=== PATIENT | female | born 1970 | race Caucasian/White ===

== ENCOUNTER → 2017-05-12 | Outpatient (CLI) | payer OTHER ==
[~2017-05-12] MED LIST: ASPI-589 PO; ATOR10TA88 PO; ATV/1 PO; ATV1 PO; LEVO75TA5 PO; PRLSR20 PO; SUCR1TAB29 PO
[2017-05-12 12:38] LABS: BASO % 0.2 %; BASO ABS # 0.01 K/uL (0-0.2); COMPLETE YES; EOS % 1.6 %; HEMATOCRIT 44.4 % (37-47); IG% 0.2 %; LYMPH % 22.3 %; LYMPH ABS # 1.24 K/uL (1.2-3.4); MEAN CELL VOLUME 89.7 fL (80-100); MEAN CORPUSCULAR HEMOGLOBIN 30.7 pg (25-34); MEAN CORPUSCULAR HGB CONC 34.2 g/dl (32-36); MONO % 9.2 %; NEUT % 66.5 %; PLATELET COUNT 274 K/uL (130-400); RED BLOOD COUNT 4.95 M/uL (4.2-5.4); WHITE BLOOD COUNT 5.55 K/uL (4.8-10.8)
[2017-05-12 12:45] LABS: URINE APPEARANCE CLEAR (CLEAR); URINE BILIRUBIN NEG (NEG); URINE COLOR YELLOW; URINE EPITHELIAL CELL AUTO 20-30 /lpf (0-5); URINE NITRITE NEG (NEG); URINE PH 6.5 (4.5-7.5); URINE SPECIFIC GRAVITY 1.015 (1.000-1.030); UROBILINOGEN NEG (NEG); ZZUR CULT IF INDIC CLEAN CATCH NO
[2017-05-12 12:46] LABS: MANUAL MICROSCOPIC REQUIRED? NO; REVIEW REQ? NO
[2017-05-12 12:51] LABS: ALT/SGPT 35 U/L (12-78); BLOOD UREA NITROGEN 10 mg/dl (7-18); BUN/CREATININE RATIO 12.1 (10-20); CALCIUM 9.6 mg/dl (8.5-10.1); CARBON DIOXIDE 25 mmol/L (21-32); CHLORIDE 108 mmol/L (98-107); CREATININE 0.86 mg/dl (0.60-1.20); GLUCOSE 108 mg/dl (70-99); POTASSIUM 4.3 mmol/L (3.5-5.1); SODIUM 141 mmol/L (136-145); TRIGLYCERIDES 132 mg/dl (0-150); VERY LOW DENSITY LIPOPROT CALC 26 mg/dl
[2017-05-12 13:02] LABS: ALB/GLOB RATIO 1.1 (0.9-2); ALKALINE PHOSPHATASE 106 U/L (45-117); AST/SGOT 23 U/L (15-37); CHOLESTEROL 238 mg/dl (0-200); CHOLESTEROL/HDL RATIO 5.2; HDL CHOLESTEROL 46 mg/dl; LDL CHOLESTEROL CALCULATED 166 mg/dl
== END | disposition home or self-care (01) ==
LOC: C.LABBFT 09:52
PROVIDERS: ATTEND Internal Medicine
DX: M62.838 Other muscle spasm (principal); E78.00 Pure hypercholesterolemia, unspecified; E03.9 Hypothyroidism, unspecified

== ENCOUNTER → 2017-06-03 | Outpatient (CLI) | payer OTHER ==
--- NOTE | 2017-06-03 09:34 | DIAGNOSTIC IMAGING REPORT ---
(CHEST) THORAX WITHOUT CLINICAL HISTORY: 47 years-old Female presenting with PULMONARY NODULE, history of enlarged subcarinal lymph node. TECHNIQUE: Multidetector CT imaging of the chest was performed without the use of intravenous contrast. IV contrast: None. A dose lowering technique was used consistent with the principles of ALARA (as low as reasonably achievable). COMPARISON: 08/26/2015. CT DOSE (mGy.cm): The estimated cumulative dose is 377.27 mGycm. 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 On soft tissue windows, normal thyroid and thoracic inlet. Numerous prominent mediastinal lymph nodes, the largest in the subcarinal region measuring 9 mm in short axis. This is grossly similar to prior exam. Normal aorta. Normal heart size. Small pericardial effusion, new from prior. No pleural effusion. Cholecystectomy clips noted. On lung windows, right upper lobe solid nodule measures 3 mm (series 4 image 80), not clearly seen on the prior exam. Additionally, multiple new nodular opacities and peribronchial vascular distribution noted in the right lung (for example series 4 image 132). In the superior segment of the right lower lobe, two adjacent right lower lobe nodules measure 3 to 4 mm (series 4 images 79 and 83), unchanged. Perifissural solid nodule in the left upper lobe measuring 6 mm (series 4 image 104), unchanged. Airways patent. On bone windows, mild multilevel degenerative changes. IMPRESSION: 1. Multiple bilateral solid pulmonary nodules, the largest measuring 4 mm. Follow-up per Fleischner Society 2017 recommendations. The peribronchovascular distribution could suggest an infectious etiology such as mycobacterium avium intracellulare. 2. Persistent prominent mediastinal lymph nodes, possibly reactive. 3. New small pericardial effusion. Please refer to below summary of Fleischner Society 2017 recommendations for follow-up of incidental CT nodules (H Damian et al. Guidelines for management of incidental pulmonary nodules detected on CT images: From the Fleischner Society 2017. Radiology 2017; 284: 228-243.) SOLID NODULES Single nodule; size <6 mm * Low risk patients: No routine follow-up * High risk patients: Optional CT at 12 months Single nodule; size 6-8 mm * Low risk patients: CT at 6-12 months, then consider CT at 18-24 months * High risk patients: CT at 6-12 months, then at 18-24 months Single nodule; size >8 mm * Either low or high risk patients: Considered CT at 3 months, PET/CT, or tissue sampling Multiple nodules; size <6 mm * Low risk patients: No routine follow up * High risk patients: Optional CT at 12 months Multiple nodules; size 6-8 mm * Low risk patients: CT at 3-6 months, then consider CT at 18-24 months * High risk patients: CT at 3-6 months, then at 18-24 months Multiple nodules; size >8 mm * Low risk patients: CT at 3-6 months, then consider at 18-24 months * High risk patients: CT at 3-6 months, then at 18-24 months Note: These guidelines apply to incidental nodules. These guidelines did not apply to patients younger than 35 years, immunocompromised patients, or patients with cancer. * Low risk patients: Minimal or absent history of smoking and/or other known risk factors * High risk patients: History of smoking, exposure to other carcinogens, emphysema, fibrosis, upper lobe location, family history of lung cancer, etc. * If a nodule up to 8 mm is partly solid or is ground glass further follow-up is required after 24 months to exclude possible slow growing adenocarcinoma SUBSOLID NODULES Single ground-glass nodule * Nodule size < 6 mm: No routine follow-up * Nodule size > or = 6 mm: CT at 6-12 months to confirm persistence, then CT every 2 years until 5 years Single part-solid nodule * Nodule size < 6 mm: No routine follow-up * Nodules size > or = 6 mm: CT at 3-6 months to confirm persistence. If unchanged and solid component remains < 6 mm, annual CT should be performed for 5 years Multiple nodules * Nodule size < 6 mm: CT at 3-6 months. If stable, consider CT at 2 and 4 years. * Nodules size > or = 6 mm: CT at 3-6 months. Subsequent management based on the most suspicious nodule(s) Electronically signed by: Lorenzo Larson M.D. 06/03/2017 9:33 AM Dictated Date/Time: 06/03/2017 9:25 AM
== END | disposition home or self-care (01) ==
LOC: C.CTS 09:04
PROVIDERS: ATTEND Internal Medicine
DX: R91.8 Other nonspecific abnormal finding of lung field (principal)

== ENCOUNTER → 2017-06-10 | Outpatient (CLI) | payer OTHER | END | disposition home or self-care (01) | LOC: C.LABBFT 11:48 | PROVIDERS: ATTEND Nurse Practitioner | DX: R91.8 Other nonspecific abnormal finding of lung field (principal) ==

== ENCOUNTER → 2017-08-17 | Day surgery (SDC) | payer OTHER ==
[2017-07-30 08:28] VITALS: BMI 32.0
--- NOTE | 2017-07-30 09:08 | PAT Medication Instructions ---
Service Date Jul 30, 2017. Current Home Medication List Levothyroxine Sodium (Levothyroxine Sodium), 75 MCG PO QAM Lorazepam (Ativan), 1 MG PO TID PRN for PRN Omeprazole (Prilosec), 20 MG PO PRN Sucralfate (Carafate), 1 GM PO QID PRN for GI Upset Medication Instructions For Your Scheduled Surgery - Hold the following medications the morning of surgery: Sucralfate (Carafate), 1 GM PO QID PRN for GI Upset - Take the following medications the morning of surgery with a sip of water: Levothyroxine Sodium (Levothyroxine Sodium), 75 MCG PO QAM Lorazepam (Ativan), 1 MG PO TID PRN for PRN (if needed) Omeprazole (Prilosec), 20 MG PO PRN (if needed) - Take the following medications as scheduled the night before surgery: Levothyroxine Sodium (Levothyroxine Sodium), 75 MCG PO QAM Lorazepam (Ativan), 1 MG PO TID PRN for PRN (if needed) Omeprazole (Prilosec), 20 MG PO PRN (if needed) Sucralfate (Carafate), 1 GM PO QID PRN for GI Upset (if needed) If you have any questions please call us at [phone] or [phone] or [phone]
[2017-07-30 10:27] LABS: BASO % 0.3 %; BASO ABS # 0.02 K/uL (0-0.2); COMPLETE YES; EOS % 1.6 %; HEMATOCRIT 42.7 % (37-47); IG% 0.2 %; LYMPH % 19.6 %; LYMPH ABS # 1.22 K/uL (1.2-3.4); MEAN CELL VOLUME 88.8 fL (80-100); MEAN CORPUSCULAR HEMOGLOBIN 31.2 pg (25-34); MEAN CORPUSCULAR HGB CONC 35.1 g/dl (32-36); MEAN PLATELET VOLUME 9.7 fL (7.4-10.4); MONO % 9.5 %; NEUT % 68.8 %; PLATELET COUNT 237 K/uL (130-400); RED BLOOD COUNT 4.81 M/uL (4.2-5.4); WHITE BLOOD COUNT 6.23 K/uL (4.8-10.8)
[2017-07-30 10:46] LABS: BUN/CREATININE RATIO 15.7 (10-20); CALCIUM 9.2 mg/dl (8.5-10.1); CREATININE 0.78 mg/dl (0.60-1.20); POTASSIUM 4.2 mmol/L (3.5-5.1)
[2017-07-30 10:47] LABS: INR 0.9 (0.9-1.1); PARTIAL THROMBOPLASTIN RATIO 1.1; PROTHROMBIN TIME (PATIENT) 10.1 SECONDS (9.0-12.0)
[~2017-08-17] VITALS: Ht 157.5 cm; Wt 79.7 kg
[~2017-08-17] MED LIST changes: -ASPI-589 PO; -ATOR10TA88 PO; +ATROPINE SULFATE 0.1 MG/ML 5ML SYR IV PRN; -ATV1 PO; +DEXAMETHASONE SOD INJ 4 MG/ML VIAL ONE; +EpHEDrine SULFATE INJ 50 MG/ML AMP IV PRN; +FENTANYL CITRATE INJ 50 MCG/1 ML 2 ML VIAL IV PRN; +FENTANYL CITRATE INJ 50 MCG/1 ML 2 ML VIAL ONE; +HYDROmorphone INJ 1 MG/ML SYR IV PRN; +LABETALOL HCL IV 5 MG/ML 20ML IV PRN; +LIDOCAINE HCL 2% 2 ML VIAL (20MG/ML) ONE; +MEPERIDINE HCL 25 MG/ML CARP IV PRN; +MIDAZOLAM HCL 1 MG/ML 2ML VIAL ONE; +ONDANSETRON INJ 2 MG/ML 2 ML VIAL IV PRN; +ONDANSETRON INJ 2 MG/ML 2 ML VIAL ONE; +PROPOFOL IV EMULSION 10 MG/ML 20 ML VIAL IV ONE
[2017-08-17 05:46] VITALS: BP 165/93; PULSE 101; TEMP 36.9; O2SAT 98; Ht 157.5 cm; Wt 79.7 kg
--- NOTE | 2017-08-17 06:41 | History and Physical ---
History & Physical Date Aug 17, 2017. Chief Complaint Pulmonary nodules with mediastinal lymphadenopathy History of Present Illness The patient is a 47 year old female with complaints of pulmonary nodules with mediastinal lymphadenopathy: 47-year-old female who in [address] during her workup for gallbladder issues which was noted to have multiple pulmonary nodules as well as mediastinal lymphadenopathy. She has been monitored with serial CT scans since that time with most recent CT performed 06/03/2017 showing multiple nodules with other stable ones as well as stable mediastinal nodules. Radiologist differential diagnosis suggested atypical mycobacterial infection. Patient comes in today and denies any active respiratory complaints. She also denies: Fever, chills, productive cough, pleurisy, hemoptysis, unintentional weight loss. She has had no sick contacts or travel to areas which are endemic to tuberculosis. CT of the abdomen 03/12/2015: Indication left lower quadrant abdominal pain Small incompletely visualized RML nodule CT abdomen pelvis 06/04/2015 Stable RML 4 mm nodule CTA 08/26/2015: Indication chest pain Subcarinal adenopathy largest measuring 1.2 cm RML 7 mm nodule RLL 2x 4mm nodules 6mm left upper lobe perifissural CT thorax without contrast 06/30/2017 The RML 9 mm nodule RLL 3 mm nodule (new) 6mm left upper lobe perifissural Mediastinal lymphadenopathy Past Medical/Surgical History Medical Problems: 1. Abnormal thyroid exam 2. Acute cholecystitis 3. Anxiety 4. Cervicalgia 5. Depression 6. Esophageal stricture 7. Headache, tension type, chronic 8. Hiatal hernia with GERD 9. Hypercholesterolemia 10. Hyperglycemia 11. Hypothyroidism 12. Microscopic hematuria 13. Multiple lung nodules 14. Muscle spasm 15. Vitamin D deficiency 16. Dyslipidemia 17. Hypothyroidism 18. Multiple lung nodules 19. Panic disorder Surgical Problems: 1. History of Cholecystectomy Laparoscopic 2. History of Hand Incision Tendon Sheath Of A Finger 3. History of Hysterectomy 4. History of Tonsillectomy 5. History of Tubal Ligation 6. History of Umbilical Hernia Repair Family History 1. Family history of Anxiety 2. Family history of Depression 3. Family history of colon cancer 4. Family history of diabetes mellitus 5. Family history of Gallbladder disease 6. Family history of Heart attack 7. Family history of High blood pressure 8. Family history of Kidney stones 9. Family history of diabetes mellitus 10. Family history of High blood pressure Social History Does not use illicit drugs Employed Exercises 1 to 2 times per week Never a smoker Never used moist powdered tobacco No secondhand smoke exposure Rarely consumes alcohol Allergies Coded Allergies: Citalopram (Verified Allergy, Severe, THROAT SWELLING, 08/17/17) Codeine (Verified Allergy, Mild, GENERALIZED ITCHING, 08/17/17) Ketorolac Tromethamine (Verified Adverse Reaction, Unknown, LOOPY, ) Home Medications Scheduled Levothyroxine Sodium (Levothyroxine Sodium), 75 MCG PO QAM Omeprazole (Prilosec), 20 MG PO PRN Scheduled PRN Lorazepam (Ativan), 1 MG PO TID PRN for PRN Sucralfate (Carafate), 1 GM PO QID PRN for GI Upset Physical Examination Skin: warm/dry, no rash Eyes: normal inspection, EOMI, sclerae normal ENT: normal ENT inspection, pharynx normal Head: normocephalic, atraumatic Neck: supple, no adenopathy, trachea midline Respiratory/Chest: lungs clear, normal breath sounds, no respiratory distress Cardiovascular: regular rate, rhythm, no edema, no murmur Abdomen / GI: normal bowel sounds, non tender Back: normal inspection Extremities: normal inspection, normal range of motion Neurologic/Psych: no motor/sensory deficits, alert, normal reflexes, oriented x 3 Diagnosis Lung nodules with mediastinal lymphadenopathy ASA Classification: ASA Class II Plan of Treatment Perform these studies for evaluation of mediastinal lymphadenopathy and pulmonary nodules: Flexible bronchoscopy, EBUS bronchoscopy, transtracheal versus trans bronchial fine-needle aspiration, possible transbronchial biopsies , bronchial lavage, intrabronchial biopsy and forcep biopsy
--- NOTE | 2017-08-17 07:04 | History & Physical Bridge Note ---
H&P Re-Evaluation Bridge Note: I have examined the patient, reviewed the History & Physical and in the interval since the performance of the History & Physical I have noted the following changes of clinical significance: No changes noted
--- NOTE | 2017-08-17 09:05 | Discharge Instructions ---
Discharge Instructions Date of Service Aug 17, 2017. Admission Reason for Admission: Mediastinal Lymphadenopathy, Multiple Lung Nodules Discharge Discharge Diagnosis / Problem: small right middle lobe nodules with mediastinal lymphadenopathy Discharge Goals Goal(s): Diagnostic testing Activity Recommendations Activity Limitations: resume your previous activity . Instructions / Follow-Up Instructions / Follow-Up Follow-up in the [facility] pulmonary clinic Current Hospital Diet Patient's current hospital diet: Discharge Diet Recommended Diet: Regular Diet Procedures Procedures Performed: Endobronchial Ultrasound Guided Biopsy, Endobronchial Ultrasound, Trans-Bronchial Needle Biopsy, Bronchial Lavage Pending Studies Studies pending at discharge: no Medical Emergencies . Who to Call and When: Medical Emergencies: If at any time you feel your situation is an emergency, please call 911 immediately. . Non-Emergent Contact Non-Emergency issues call your: Supervisor Finishing Department . . "Provider Documentation" section prepared by Yonathan Lee. . VTE Core Measure Inpt VTE Proph given/why not?: Treatment not indicated
--- NOTE | 2017-08-17 09:07 | Bronchoscopy Procedure Note ---
Bronchoscopy Procedure Note Procedure: Flexible-Bronchoscopy, EBUS, GETA, transbronchial fine-needle aspiration, bronchial lavage Consent: Obtained through the patient placed into the chart Pre-Procedural Dx: Pulmonary nodules with mediastinal adenopathy/hilar adenopathy Post-Procedural Dx: Pulmonary nodules with mediastinal/hilar adenopathy Analgesia: GETA Sedation: GETA Procedure: The Olympus video bronchoscope and EBUS scope were used for this procedure Initially the flexible bronchoscope was used for evaluation of the airways. The ET tube was notably cm above the level of the letty. Trachea: Visualized portion of the trachea was anatomically within normal limits Letty: Anatomically within normal limits Right bronchial tree: Right mainstem bronchus: Anatomically within normal limits Right upper lobe: Anatomically within normal limits Bronchus intermedius: Anatomically within normal limits Right middle lobe: Small less than 1 mm papillomas noted on the lateral wall of the takeoff to the RB5 subsegment Right lower lobe: Anatomically within normal limits Findings: No significant findings noted Left bronchial tree: Left mainstem bronchus: Anatomically within normal limits Left upper lobe: Anatomically within normal limits Lingula: Anatomically within normal limits Left lower lobe: Anatomically within normal limits Findings: No significant findings noted EBUS/JALEESA: Tbbx Micheline Stations: 7: # of passes 9 (3 different notes) 10R: # of passes passes 3 EBL: Complications: None Follow-up: [facility]
[2017-08-17 09:30] VITALS: BP 132/84; PULSE 97; TEMP 36.2; O2SAT 97
[2017-08-17 09:58] VITALS: BP 149/81; PULSE 97; O2SAT 95
--- NOTE | 2017-08-17 10:04 | Anesthesiology Progress Note ---
Anesthesia Post Op Note Date & Time Aug 17, 2017 at 10:03 Vital Signs Pain Intensity: 0 Vital Signs Past 12 Hours Date Time Temp Pulse Resp B/P (MAP) Pulse Ox O2 Delivery O2 Flow Rate FiO2 08/17/17 09:58 97 22 149/81 95 Room Air 08/17/17 09:30 36.2 97 18 132/84 97 Room Air 08/17/17 09:25 36.4 94 16 135/90 95 Room Air Oxymask 08/17/17 09:15 99 16 137/86 94 Room Air Oxymask 08/17/17 09:05 100 16 116/90 97 Oxymask 10 08/17/17 08:55 112 16 126/88 97 Oxymask 10 08/17/17 08:46 36. 114 16 125/77 97 Oxymask 10 08/17/17 05:46 36.9 101 20 165/93 (117) 98 Room Air Notes Mental Status: alert / awake / arousable, participated in evaluation Pt Amnestic to Procedure: Yes Nausea / Vomiting: adequately controlled Pain: adequately controlled Airway Patency, RR, SpO2: stable & adequate BP & HR: stable & adequate Hydration State: stable & adequate Anesthetic Complications: no major complications apparent
[2017-08-17 10:22] VITALS: BP 159/85; PULSE 99; O2SAT 98
== END | disposition home or self-care (01) ==
LOC: C.ACU 05:32
PROVIDERS: ATTEND Internal Medicine Critical Care Medicine
DX: R91.8 Other nonspecific abnormal finding of lung field (principal); R59.0 Localized enlarged lymph nodes; E66.9 Obesity, unspecified; Z88.5 Allergy status to narcotic agent

== ENCOUNTER → 2017-08-26 | Outpatient (CLI) | payer OTHER ==
[~2017-08-26] MED LIST changes: -ATROPINE SULFATE 0.1 MG/ML 5ML SYR IV PRN; -DEXAMETHASONE SOD INJ 4 MG/ML VIAL ONE; -EpHEDrine SULFATE INJ 50 MG/ML AMP IV PRN; -FENTANYL CITRATE INJ 50 MCG/1 ML 2 ML VIAL IV PRN; -FENTANYL CITRATE INJ 50 MCG/1 ML 2 ML VIAL ONE; -HYDROmorphone INJ 1 MG/ML SYR IV PRN; -LABETALOL HCL IV 5 MG/ML 20ML IV PRN; -LIDOCAINE HCL 2% 2 ML VIAL (20MG/ML) ONE; -MEPERIDINE HCL 25 MG/ML CARP IV PRN; -MIDAZOLAM HCL 1 MG/ML 2ML VIAL ONE; -ONDANSETRON INJ 2 MG/ML 2 ML VIAL IV PRN; -ONDANSETRON INJ 2 MG/ML 2 ML VIAL ONE; -PROPOFOL IV EMULSION 10 MG/ML 20 ML VIAL IV ONE
[2017-08-26 12:42] LABS: ALT/SGPT 22 U/L (12-78); AMYLASE 44 U/L (25-115); AST/SGOT 15 U/L (15-37); BLOOD UREA NITROGEN 14 mg/dl (7-18); BUN/CREATININE RATIO 17.8 (10-20); CALCIUM 9.2 mg/dl (8.5-10.1); CARBON DIOXIDE 27 mmol/L (21-32); CHLORIDE 106 mmol/L (98-107); CREATININE 0.76 mg/dl (0.60-1.20); GLUCOSE 104 mg/dl (70-99); POTASSIUM 4.3 mmol/L (3.5-5.1); SODIUM 139 mmol/L (136-145)
[2017-08-26 12:44] LABS: ALB/GLOB RATIO 1.1 (0.9-2); ALKALINE PHOSPHATASE 108 U/L (45-117)
[2017-08-26 12:55] LABS: BASO % 0.2 %; BASO ABS # 0.01 K/uL (0-0.2); COMPLETE YES; EOS % 1.4 %; HEMATOCRIT 42.1 % (37-47); IG% 0.3 %; LYMPH % 20.5 %; LYMPH ABS # 1.36 K/uL (1.2-3.4); MEAN CELL VOLUME 89.6 fL (80-100); MEAN CORPUSCULAR HEMOGLOBIN 30.9 pg (25-34); MEAN CORPUSCULAR HGB CONC 34.4 g/dl (32-36); MONO % 8.1 %; NEUT % 69.5 %; PLATELET COUNT 248 K/uL (130-400); WHITE BLOOD COUNT 6.63 K/uL (4.8-10.8)
== END | disposition home or self-care (01) ==
LOC: C.LABBFT 10:34
PROVIDERS: ATTEND Physician Assistant Medical
DX: R11.2 Nausea with vomiting, unspecified (principal)

== ENCOUNTER → 2017-08-30 | Outpatient (CLI) | payer OTHER ==
[~2017-08-30] MED LIST changes: +OPTIRAY 320 IV PRN
--- NOTE | 2017-08-30 17:07 | DIAGNOSTIC IMAGING REPORT ---
ABD/PELVIS IV AND ORAL CONT CT DOSE: 491.77 mGy.cm HISTORY: Pain. Nausea. R10.13 Epigastric painR11.2 Nausea T [id number] TECHNIQUE: Multiaxial CT images of the abdomen and pelvis were performed following the use of intravenous and oral contrast. A dose lowering technique was utilized adhering to the principles of ALARA. COMPARISON STUDY: 06/04/2015 FINDINGS: Lung bases are considered clear. Liver spleen and pancreas are uniform. Prior cholecystectomy. Kidneys negative for hydronephrosis. There is mild renal cortical scarring bilaterally. Bowel pattern within the abdomen and pelvis is considered nonobstructive. No significant free fluid within the pelvic cul-de-sac. Bladder is midline. No contained calcifications. IMPRESSION: No acute process. Incidental findings as noted. The above report was generated using voice recognition software. It may contain grammatical, syntax or spelling errors. Electronically signed by: Perfecto Hernandez M.D. 08/30/2017 5:06 PM Dictated Date/Time: 08/30/2017 4:42 PM
== END | disposition home or self-care (01) ==
LOC: C.CTS 16:24
PROVIDERS: ATTEND Physician Assistant Medical
DX: R11.2 Nausea with vomiting, unspecified (principal); R10.13 Epigastric pain

== ENCOUNTER 2017-09-12 06:09 | Emergency (ER) | payer OTHER ==
[~2017-09-12] VITALS: Ht 160 cm; Wt 77.7 kg
[~2017-09-12 06:09] MED LIST changes: -OPTIRAY 320 IV PRN
[2017-09-12 06:18] VITALS: TEMP 36.7; Ht 160 cm; Wt 77.7 kg
[2017-09-12 06:20] VITALS: O2SAT 100
[2017-09-12] MEDS ORDERED: PANT40TA PO (06:32)
[2017-09-12] MEDS ORDERED: CHOL2000 PO (06:34)
[2017-09-12] MEDS ORDERED: ATOR10TA82 PO (06:35)
[2017-09-12] MEDS ORDERED: LORAZEPAM 2 MG/ML 1 ML VIAL IV STA (06:36)
[2017-09-12] MEDS ORDERED: GI COCKTAIL PO STA (06:36)
--- NOTE | 2017-09-12 06:40 | EMERGENCY ROOM VISIT NOTE ---
History Report prepared by Jeni: Barbara Ku Under the Supervision of: Dr. Teddy Ayala M.D. First contact with patient: 06:24 Chief Complaint: CHEST PAIN Stated Complaint: CHEST PAIN,ARM PAIN, TROUBLE BREATHING History of Present Illness The patient is a 47 year old female who presents to the Emergency Room with complaints of chest pain beginning at 0500 this morning. The patient describes the pain as a pressure feeling. She states that her pain starts in her central back and that she also has shortness of breath. She also reports having vomiting and left arm pain. She states that she has been taking Aleve on and off for the pain but that it gives her stomach problems. The patient denies fevers. She reports a history of a cholecystectomy and states that she is on Lorazepam but that she has not had it in 2 days. Source of History: patient Onset: 0500 this morning Position: chest Quality: pressure Associated Symptoms: + SOB, + vomiting, + back pain, No fevers Note: additional symptom: left arm pain Review of Systems See HPI for pertinent positives & negatives. A total of 10 systems reviewed and were otherwise negative. Past Medical & Surgical Medical Problems: (1) Dyslipidemia (2) Hypothyroidism (3) Multiple lung nodules (4) Panic disorder Surgical Problems: (1) History of cholecystectomy (2) History of hysterectomy (3) History of tubal ligation Social History Problems: (1) Hypothyroid Family History Diabetes mellitus FH: cancer FH: heart disease Hypertension Social History Smoking Status: Never Smoker Alcohol Use: none Drug Use: none Marital Status: Housing Status: lives with family Occupation Status: employed Current/Historical Medications Scheduled Atorvastatin (Lipitor), 10 MG PO DAILY Cholecalciferol (Vitamin D3), 2,000 UNITS PO DAILY Levothyroxine Sodium (Levothyroxine Sodium), 75 MCG PO QAM Pantoprazole (Protonix), 40 MG PO DAILY Scheduled PRN Lorazepam (Ativan), 1 MG PO TID PRN for PRN Allergies Coded Allergies: Citalopram (Verified Allergy, Severe, THROAT SWELLING, 08/17/17) Codeine (Verified Allergy, Mild, GENERALIZED ITCHING, 08/17/17) Ketorolac Tromethamine (Verified Adverse Reaction, Unknown, LOOPY, ) Physical Exam Vital Signs Date Time Temp Pulse Resp B/P (MAP) Pulse Ox O2 Delivery O2 Flow Rate FiO2 09/12/17 09:10 74 20 125/89 96 09/12/17 07:46 80 22 149/91 95 Room Air 09/12/17 07:22 86 18 153/113 100 Room Air 09/12/17 06:28 100 Room Air 09/12/17 06:26 80 09/12/17 06:20 100 Room Air 09/12/17 06:18 36.7 87 22 183/104 100 Room Air Physical Exam GENERAL: Patient is very anxious appearing and in moderate distress. HEENT: No acute trauma, normocephalic atraumatic, mucous membranes moist, no nasal congestion, no scleral icterus. NECK: No stridor, no adenopathy, no meningismus, trachea is midline. LUNGS: No dyspnea. Clear to auscultation and equal bilaterally. No wheeze, no rhonchi. HEART: Regular rate and rhythm. No murmurs, rubs, gallops appreciated. ABDOMEN: Soft, epigastric tenderness to palpation, bowel sounds positive, no masses appreciated, no peritonitis. BACK: No midline tenderness, no CVA tenderness EXTREMITIES: Normal motion all extremities, no cyanosis, no edema. NEUROLOGIC: Alert and oriented, no acute motor or sensory deficits, no focal weakness, cranial nerves grossly intact. SKIN: No rash, no jaundice, no diaphoresis. Medical Decision & Procedures ER Provider Diagnostic Interpretation: Radiology results and stated below per my review and radiologist interpretation: CHEST ONE VIEW PORTABLE HISTORY: 47 years-old Female Chest Pain acute atypical chest pain with difficulty breathing COMPARISON: Chest radiograph 01/17/2016 TECHNIQUE: Portable upright AP view of the chest FINDINGS: Cardiomediastinal and hilar silhouettes are within normal limits. Mild right hemidiaphragmatic elevation. There is no pneumothorax, pleural effusion, focal airspace consolidation or overt pulmonary edema. Bones of the chest are grossly intact. Surgical clips of the upper abdomen suggest prior cholecystectomy. IMPRESSION: No acute cardiopulmonary process. The above report was generated using voice recognition software. It may contain grammatical, syntax or spelling errors. Electronically signed by: Demetrius Lynn M.D. 09/12/2017 7:12 AM Dictated Date/Time: 09/12/2017 7:11 AM Laboratory Results 09/12/17 06:22 Red Blood Count 4.87, Mean Corpuscular Volume 88.9, Mean Corpuscular Hemoglobin 31.0, Mean Corpuscular Hemoglobin Concent 34.9, Mean Platelet Volume 9.5, Neutrophils (%) (Auto) 54.2, Lymphocytes (%) (Auto) 32.8, Monocytes (%) (Auto) 9.9, Eosinophils (%) (Auto) 2.6, Basophils (%) (Auto) 0.3, Neutrophils # (Auto) 3.50, Lymphocytes # (Auto) 2.12, Monocytes # (Auto) 0.64, Eosinophils # (Auto) 0.17, Basophils # (Auto) 0.02 09/12/17 06:22 Test 09/12/17 06:22 09/12/17 08:18 White Blood Count 6.46 K/uL (4.8-10.8) Red Blood Count 4.87 M/uL (4.2-5.4) Hemoglobin 15.1 g/dL (12.0-16.0) Hematocrit 43.3 % (37-47) Mean Corpuscular Volume 88.9 fL (80-100) Mean Corpuscular Hemoglobin 31.0 pg (25-34) Mean Corpuscular Hemoglobin Concent 34.9 g/dl (32-36) Platelet Count 245 K/uL (130-400) Mean Platelet Volume 9.5 fL (7.4-10.4) Neutrophils (%) (Auto) 54.2 % Lymphocytes (%) (Auto) 32.8 % Monocytes (%) (Auto) 9.9 % Eosinophils (%) (Auto) 2.6 % Basophils (%) (Auto) 0.3 % Neutrophils # (Auto) 3.50 K/uL (1.4-6.5) Lymphocytes # (Auto) 2.12 K/uL (1.2-3.4) Monocytes # (Auto) 0.64 K/uL (0.11-0.59) Eosinophils # (Auto) 0.17 K/uL (0-0.5) Basophils # (Auto) 0.02 K/uL (0-0.2) RDW Standard Deviation 43.1 fL (36.4-46.3) RDW Coefficient of Variation 13.3 % (11.5-14.5) Immature Granulocyte % (Auto) 0.2 % Immature Granulocyte # (Auto) 0.01 K/uL (0.00-0.02) Anion Gap 8.0 mmol/L (3-11) Est Creatinine Clear Calc Drug Dose 70.7 ml/min Estimated GFR () 81.5 Estimated GFR (Non- 70.3 BUN/Creatinine Ratio 15.6 (10-20) Calcium Level 9.4 mg/dl (8.5-10.1) Total Bilirubin 0.4 mg/dl (0.2-1) Direct Bilirubin 0.1 mg/dl (0-0.2) Aspartate Amino Transf (AST/SGOT) 22 U/L (15-37) Alanine Aminotransferase (ALT/SGPT) 34 U/L (12-78) Alkaline Phosphatase 119 U/L (45-117) Troponin I < 0.015 ng/ml (0-0.045) Total Protein 7.7 gm/dl (6.4-8.2) Albumin 4.1 gm/dl (3.4-5.0) Lipase 261 U/L (73-393) Bedside Troponin I < 0.030 ng/ml (0-0.045) Laboratory results as reviewed by me. Medications Administered Medications (Trade) Dose Ordered Sig/Pati Route Start Time Stop Time Status Last Admin Dose Admin Lorazepam (Ativan Inj) 1 mg NOW STAT IV 09/12/17 06:36 09/12/17 06:39 DC 09/12/17 07:16 1 MG Lidocaine HCl (Viscous Lidocaine 2% Soln) 20 ml STK-MED ONCE .ROUTE 09/12/17 07:12 09/12/17 07:13 DC 09/12/17 07:16 20 ML Al Hydroxide/Mg Hydroxide (Maalox Susp) 30 ml STK-MED ONCE .ROUTE 09/12/17 07:13 09/12/17 07:14 DC 09/12/17 07:16 30 ML Lorazepam (Ativan 1MG Home Pack) 1 homepack UD ONCE PO 09/12/17 08:45 09/12/17 08:46 DC 09/12/17 09:08 1 HOMEPACK ECG Indication: chest pain Rate (beats per minute): 86 Rhythm: normal sinus Findings: no acute ischemic change, no ectopy, other (shaky baseline) ED Course 0632: The patient was evaluated in room A10. A complete history and physical exam was performed. 0636: Ordered Gi Cocktail 24 ml PO, Lorazepam 1 mg IV. 0712: Ordered Lidocaine HCl 20 ml. 0713: Ordered Maalox Susp 30 ml. 0838: I checked on the patient. She feels much better and would like to go home. 0845: Ordered Lorazepam 1 homepack PO. 0850: Reevaluated the patient. Discussed results and discharge instructions: She verbalized understanding and agreement. The patient is ready for discharge. Medical Decision Differential: Cholecystitis, Gallbladder disfunction, Hepatic Disfunction, Gastritis/PUD, Pancreatitis, ACS, Aortic Pathology, amongst other pathologies entertained. 47 yr old female arrives with epigastric pain radiating up chest and some left arm pain. She is severely anxious, hypertensive and crying. Moderate epigastric TTP. Symptoms consistent with GERD which is well known for her. Multiple previous work-ups for this previously by ED and PCP with several CT chest as well. EKG negative, trop neg x 2, and other labs unremarkable. With ativan and GI cocktail feeling much improved. Suspect some of this is withdrawal from Ativan as she has run out of her monthly rx. Given 2 tabs ativan to get through weekend to see PCP. Discussed need for PCP/GI follow up. Advised doubling her zantac and if worsening or other concerns RTED. Medication Reconcilliation Current Medication List: was personally reviewed by me Blood Pressure Screening Patient's blood pressure: Elevated blood pressure Blood pressure disposition: Elevated BP felt to be situational Impression Primary Impression: Epigastric abdominal pain Additional Impressions: Substernal chest pain Hypertension Scribe Attestation The scribe's documentation has been prepared under my direction and personally reviewed by me in its entirety. I confirm that the note above accurately reflects all work, treatment, procedures, and medical decision making performed by me. Departure Information Dispostion Home / Self-Care Referrals Paxton Byrd M.D. (PCP) Forms Call Back Authorization, HOME CARE DOCUMENTATION FORM, IMPORTANT VISIT INFORMATION Patient Instructions ED Epigastric Pain [facility] Additional Instructions It is likely your pain is from gastritis, or possibly an ulcer. You should increase you Zantac to twice daily for next 7 days. Follow up with GI and your Primary care provider to discuss further testing. Problem Qualifiers
[2017-09-12 06:50] LABS: BASO % 0.3 %; BASO ABS # 0.02 K/uL (0-0.2); COMPLETE YES; EOS % 2.6 %; HEMATOCRIT 43.3 % (37-47); IG% 0.2 %; LYMPH % 32.8 %; LYMPH ABS # 2.12 K/uL (1.2-3.4); MEAN CELL VOLUME 88.9 fL (80-100); MEAN CORPUSCULAR HGB CONC 34.9 g/dl (32-36); MEAN PLATELET VOLUME 9.5 fL (7.4-10.4); MONO % 9.9 %; NEUT % 54.2 %; PLATELET COUNT 245 K/uL (130-400); RED BLOOD COUNT 4.87 M/uL (4.2-5.4); WHITE BLOOD COUNT 6.46 K/uL (4.8-10.8)
[2017-09-12] MEDS ORDERED: LIDOCAINE HCL 2% VISC SOLN 20 ML UDC ONE (07:12)
[2017-09-12] MEDS ORDERED: ALUMINUM/MAGNESIUM SUSP 30 ML UDC ONE (07:13)
--- NOTE | 2017-09-12 07:13 | DIAGNOSTIC IMAGING REPORT ---
CHEST ONE VIEW PORTABLE HISTORY: 47 years-old Female Chest Pain acute atypical chest pain with difficulty breathing COMPARISON: Chest radiograph 01/17/2016 TECHNIQUE: Portable upright AP view of the chest FINDINGS: Cardiomediastinal and hilar silhouettes are within normal limits. Mild right hemidiaphragmatic elevation. There is no pneumothorax, pleural effusion, focal airspace consolidation or overt pulmonary edema. Bones of the chest are grossly intact. Surgical clips of the upper abdomen suggest prior cholecystectomy. IMPRESSION: No acute cardiopulmonary process. The above report was generated using voice recognition software. It may contain grammatical, syntax or spelling errors. Electronically signed by: Demetrius Lynn M.D. 09/12/2017 7:12 AM Dictated Date/Time: 09/12/2017 7:11 AM
[2017-09-12 07:22] LABS: ALT/SGPT 34 U/L (12-78); BLOOD UREA NITROGEN 15 mg/dl (7-18); BUN/CREATININE RATIO 15.6 (10-20); CALCIUM 9.4 mg/dl (8.5-10.1); CARBON DIOXIDE 26 mmol/L (21-32); CHLORIDE 107 mmol/L (98-107); CREATININE 0.95 mg/dl (0.60-1.20); GLUCOSE 112 mg/dl (70-99); POTASSIUM 3.8 mmol/L (3.5-5.1); SODIUM 141 mmol/L (136-145)
[2017-09-12 07:27] LABS: ALKALINE PHOSPHATASE 119 U/L (45-117); AST/SGOT 22 U/L (15-37)
[2017-09-12] MEDS ORDERED: ATIVAN 1MG HOMEPACK PO ONE (08:45)
[2017-09-12 09:10] VITALS: BP 125/89; PULSE 74; O2SAT 96
== END 2017-09-12 09:23 | disposition home or self-care (01) ==
LOC: C.EDB 06:10 → C.EDA 09:23
DX: R10.13 Epigastric pain (principal); R07.2 Precordial pain; I10 Essential (primary) hypertension; E78.5 Hyperlipidemia, unspecified; E03.9 Hypothyroidism, unspecified; F41.0 Panic disorder [episodic paroxysmal anxiety]; Z83.3 Family history of diabetes mellitus; Z80.9 Family history of malignant neoplasm, unspecified; Z82.49 Family history of ischemic heart disease and other diseases of the circulatory system; Z79.899 Other long term (current) drug therapy

== ENCOUNTER 2017-09-24 13:44 | Observation (INO) | payer OTHER ==
[~2017-09-24] VITALS: Ht 160 cm; Wt 77.2 kg
[~2017-09-24 13:44] MED LIST changes: +CHOL2000 PO; +PANT40TA PO; -PRLSR20 PO; -SUCR1TAB29 PO
[2017-09-24] MEDS ORDERED: NITROGLYCERIN 0.4 MG SL PER TAB CHARGE SL STA (14:21)
--- NOTE | 2017-09-24 14:35 | DIAGNOSTIC IMAGING REPORT ---
CHEST ONE VIEW PORTABLE CLINICAL HISTORY: Pneumonia. Cough. COMPARISON STUDY: 09/12/2017 FINDINGS: The cardiac and mediastinal contours remain stable. There is aortic tortuosity. There is no failure. There is no focal pulmonary consolidation. There are no pleural effusions.[ IMPRESSION: No active disease in the chest. Electronically signed by: Tarik Chew M.D. 09/24/2017 2:34 PM Dictated Date/Time: 09/24/2017 2:33 PM
[2017-09-24] MEDS ORDERED: FENTANYL CITRATE INJ 50 MCG/1 ML 2 ML VIAL IV STA (14:59)
[2017-09-24] MEDS ORDERED: ONDANSETRON INJ 2 MG/ML 2 ML VIAL IV STA (14:59)
[2017-09-24 15:24] LABS: BASO % 0.1 %; BASO ABS # 0.01 K/uL (0-0.2); COMPLETE YES; EOS % 0.6 %; HEMATOCRIT 38.7 % (37-47); IG% 0.2 %; LYMPH ABS # 1.52 K/uL (1.2-3.4); MEAN CELL VOLUME 89.2 fL (80-100); MEAN CORPUSCULAR HEMOGLOBIN 31.3 pg (25-34); MEAN CORPUSCULAR HGB CONC 35.1 g/dl (32-36); MEAN PLATELET VOLUME 9.4 fL (7.4-10.4); MONO % 5.4 %; NEUT % 75.7 %; PLATELET COUNT 215 K/uL (130-400); RED BLOOD COUNT 4.34 M/uL (4.2-5.4); WHITE BLOOD COUNT 8.45 K/uL (4.8-10.8)
[2017-09-24 15:31] LABS: POINT OF CARE TROPONIN I < 0.030 ng/ml (0-0.045)
[2017-09-24 15:45] LABS: BUN/CREATININE RATIO 17.9 (10-20); CREATININE 0.76 mg/dl (0.60-1.20); POTASSIUM 3.8 mmol/L (3.5-5.1)
[2017-09-24 16:27] LABS: PARTIAL THROMBOPLASTIN RATIO 0.9; PROTHROMBIN TIME (PATIENT) 10.6 SECONDS (9.0-12.0)
[2017-09-24] MEDS ORDERED: ALUMINUM/MAGNESIUM/SIMETH (MAALOX MAX) 30 ML UDC PO PRN (17:00)
[2017-09-24] MEDS ORDERED: ACETAMINOPHEN 325 MG TAB PO PRN (17:00)
[2017-09-24] MEDS ORDERED: POLYETHYLENE (MIRALAX) 17 GM PACK PO PRN (17:00)
[2017-09-24] MEDS ORDERED: MAGNESIUM HYDROXIDE SUSP 30 ML UDC PO PRN (17:00)
[2017-09-24] MEDS ORDERED: HydrALAZINE HCL 20 MG/ML VIAL IV. PRN (17:00)
[2017-09-24] MEDS ORDERED: ONDANSETRON INJ 2 MG/ML 2 ML VIAL IV PRN (17:00)
[2017-09-24] MEDS ORDERED: ASPI-435 PO (17:06)
[2017-09-24] MEDS ORDERED: CHOL100010 PO (17:06)
[2017-09-24] MEDS ORDERED: PANT40TA2 PO (17:06)
[2017-09-24] MEDS ORDERED: LISINOPRIL 5 MG TAB PO STA (17:07)
--- NOTE | 2017-09-24 17:23 | History and Physical ---
History & Physical Date & Time of Service: Sep 24, 2017 at 17:07 Chief Complaint: Chest Pain Primary Care Physician: Paxton Byrd M.D. History of Present Illness Source: patient, family (sister and mother at bedside), spouse, clinic records , hospital records This is a 47 y/o female with a history of anxiety with panic attacks, HLD, hypothyroidism, hiatal hernia, and GERD who presented to the ED on 09/24 with chest pain and dyspnea on exertion. The patient states that she has had intermittent chest pressure/tightness for the last 6 months. The pain is sometimes accompanied by diaphoresis, but the patient also notes that she is going through menopause. She has intermittent palpitations. The pain sometimes radiates down her left arm. Today her pain was a 10/10 tightness at its worst, and after receiving fentanyl is now a 3/10 that is worse with palpation. The patient had an EGD 2 days ago due to chronic nausea and vomiting , which revealed a small hiatal hernia but was otherwise negative. The patient was started on Protonix, which has improved but not completely resolved the N/ V. Since the EGD, the patient has been hypertensive, which is new for her. She has had SBP up to 200 at home. The patient has also had dyspnea on exertion for the last several months, but this has gotten worse in the last month. She denies SOB at rest or with walking, but any other type of exertion makes her dyspneic. Her chest pain in the past has been thought to be due to panic attacks or GI issues. The patient denies fevers, chills, claudication, cough, wheezing, shortness of breath at rest, abdominal pain, dysuria, hematuria , urinary retention, paralysis, weakness, numbness and tingling. Past Medical/Surgical History Medical Problems: (1) Dyslipidemia Status: Chronic (2) Hypothyroidism Status: Chronic (3) Multiple lung nodules Permanent Comment: 07/25/2015: The patient has scattered noncalcified pulmonary nodules in the right lung. There is mediastinal lymphadenopathy as well. These may be reactive inflammatory changes however neoplasm is a consideration. Followup chest CT recommended in 6 months. Bronchoscopy w/biopsies done August 2017 shows no malignant cells Status: Chronic (4) Panic disorder Status: Chronic HLD Hiatal hernia GERD Surgical Problems: (1) History of cholecystectomy Status: Resolved (2) History of hysterectomy Permanent Comment: 04/2002 Status: Resolved (3) History of tubal ligation Permanent Comment: 1990 Status: Resolved Social History Problems: (1) Hypothyroid Status: Chronic Family History Depression Diabetes mellitus FH: cancer (colon) FH: heart disease Hypertension Myocardial infarction at age less than 60 Social History Smoking Status: Never Smoker Smokeless Tobacco Use: No Alcohol Use: none Drug Use: none Marital Status: Housing status: lives with significant other Occupational Status: employed Multi-Drug Resistant Organisms History of MDRO: No Allergies Coded Allergies: Citalopram (Verified Allergy, Severe, THROAT SWELLING, 09/24/17) Codeine (Verified Allergy, Mild, GENERALIZED ITCHING, 09/24/17) Ketorolac Tromethamine (Verified Adverse Reaction, Unknown, LOOPY, ) Home Medications Scheduled Aspirin (Aspirin 81), 81 MG PO DAILY Cholecalciferol (Vitamin D), 2,000 INTUNIT PO DAILY Levothyroxine Sodium (Levothyroxine Sodium), 75 MCG PO QAM Lorazepam (Ativan), 1 MG PO HS Pantoprazole (Pantoprazole Sodium), 40 MG PO DAILY Review of Systems Constitutional: +Intermittent sweats. No fever, No chills Eyes: No worsening of vision, No eye pain, No diplopia ENT: No hearing loss, No nasal symptoms, No trouble swallowing Respiratory: +TAVAREZ. No cough, No wheezing, No shortness of breath at rest Cardiovascular: +Chest pain. Intermittent palpitations. No claudication Abdomen: +Chronic nausea, vomiting. No pain Musculoskeletal: No joint pain, No muscle pain, No swelling Genitourinary - Female: No dysuria, No urinary retention, No hematuria Neurologic: No paralysis, No weakness, No numbness/tingling Integumentary: No rash, No itch, No color change Physical Exam Vital Signs Date Time Temp Pulse Resp B/P (MAP) Pulse Ox O2 Delivery O2 Flow Rate FiO2 09/24/17 15:51 98 20 158/86 97 Room Air 09/24/17 14:40 117 20 163/104 97 09/24/17 14:39 110 09/24/17 14:06 99 Room Air 09/24/17 14:01 37.1 107 20 182/102 99 Room Air 09/24/17 14:01 99 Room Air General appearance: +Obese. Well-developed, well-nourished, no apparent distress Head: Normocephalic, atraumatic Eyes: Normal inspection, PERRL, EOMI ENT: Normal ENT inspection, hearing grossly normal, pharynx normal Neck: Supple, no JVD, trachea midline Respiratory/Chest: Lungs clear to auscultation, normal breath sounds, no respiratory distress Cardiovascular: +Tachycardic. Regular rhythm, no gallop, no murmur Abdomen/GI: Normal bowel sounds, non-tender, soft Extremities/Musculoskeletal: +Mid chest TTP. Left arm TTP. Normal inspection , no calf tenderness, no pedal edema Neurological/Psych: Alert, normal mood/affect, oriented x 3 Skin: Normal color, warm/dry, no rash Diagnostics Laboratory Results Results Past 24 Hours Test 09/24/17 15:05 09/24/17 15:13 09/24/17 16:06 09/24/17 16:58 Range/Units White Blood Count 8.45 4.8-10.8 K/uL Red Blood Count 4.34 4.2-5.4 M/uL Hemoglobin 13.6 12.0-16.0 g/dL Hematocrit 38.7 37-47 % Mean Corpuscular Volume 89.2 80-100 fL Mean Corpuscular Hemoglobin 31.3 25-34 pg Mean Corpuscular Hemoglobin Concent 35.1 32-36 g/dl Platelet Count 215 130-400 K/uL Mean Platelet Volume 9.4 7.4-10.4 fL Neutrophils (%) (Auto) 75.7 % Lymphocytes (%) (Auto) 18.0 % Monocytes (%) (Auto) 5.4 % Eosinophils (%) (Auto) 0.6 % Basophils (%) (Auto) 0.1 % Neutrophils # (Auto) 6.39 1.4-6.5 K/uL Lymphocytes # (Auto) 1.52 1.2-3.4 K/uL Monocytes # (Auto) 0.46 0.11-0.59 K/uL Eosinophils # (Auto) 0.05 0-0.5 K/uL Basophils # (Auto) 0.01 0-0.2 K/uL RDW Standard Deviation 43.8 36.4-46.3 fL RDW Coefficient of Variation 13.3 11.5-14.5 % Immature Granulocyte % (Auto) 0.2 % Immature Granulocyte # (Auto) 0.02 0.00-0.02 K/uL Sodium Level 136 136-145 mmol/L Potassium Level 3.8 3.5-5.1 mmol/L Chloride Level 104 98-107 mmol/L Carbon Dioxide Level 22 21-32 mmol/L Anion Gap 10.0 3-11 mmol/L Blood Urea Nitrogen 14 7-18 mg/dl Creatinine 0.76 0.60-1.20 mg/dl Est Creatinine Clear Calc Drug Dose 88.5 ml/min Estimated GFR () 106.8 Estimated GFR (Non- 92.1 BUN/Creatinine Ratio 17.9 10-20 Random Glucose 103 70-99 mg/dl Calcium Level 9.0 8.5-10.1 mg/dl Chemistry Specimen Hemolysis Bedside D-Dimer 314 0-450 ng/mlFEU Bedside Troponin I < 0.030 0-0.045 ng/ml Prothrombin Time 10.6 9.0-12.0 SECONDS Prothromb Time International Ratio 1.0 0.9-1.1 Activated Partial Thromboplast Time 24.0 21.0-31.0 SECONDS Partial Thromboplastin Ratio 0.9 Diagnostic Radiology Reviewed the following studies and agree with interpretation as follows: CHEST ONE VIEW PORTABLE CLINICAL HISTORY: Pneumonia. Cough. COMPARISON STUDY: 09/12/2017 FINDINGS: The cardiac and mediastinal contours remain stable. There is aortic tortuosity. There is no failure. There is no focal pulmonary consolidation. There are no pleural effusions.[ IMPRESSION: No active disease in the chest. EKG Reviewed EKG and agree with interpretation as follows: 104 bpm, sinus tachycardia Impression Assessment and Plan 47 y/o female with a history of anxiety with panic attacks, HLD, hypothyroidism , hiatal hernia, and GERD who presented to the ED on 09/24 with chest pain and dyspnea on exertion. Pt tachycardic with HR up to 117, hypertensive with BP up to 182/102. Pt given nitro and 4 baby aspirin by EMS, no relief of pain. Received another dose of nitro in ED, no relief. Received fentanyl 50 mcg which did temporarily resolve pain, now back up to 3/10. CXR no acute disease. EKG sinus tach no ischemic changes. Troponin negative. Labs unremarkable. Chest pain, ACS r/o--chest pain reproducible with palpation -Admit to telemetry for observation -Trend cardiac enzymes q8h x 3. First trop negative -Stress echo in am if negative -NPO after midnight -EKG q am and prn chest pain -Continue ASA -Fasting lipid panel. H/o HLD noted in outpt records but no current meds for this -Check HgbA1c. BSG slightly elevated in ED, family h/o DM. Pt has personal h/ o hyperglycemia per outpt records -Check d-dimer. If positive, check chest CTA to r/o PE HTN--unclear if chest pain related to HTN as pain has been ongoing for several months -Start lisinopril 5 mg PO qd, first dose now -Cover with hydralazine 10 mg IV q6h prn SBP >180 Anxiety w/history of panic attacks -Continue Ativan 1 mg PO hs Hypothyroidism -TSH WNL in May 2017 -Continue Synthroid 75 mcg PO qd Hiatal hernia, GERD, chronic N/V -EGD 09/[address] Cooper. Bx for H. Pylori pending -Continue Protonix 40 mg PO qd DVT prophylaxis -Enoxaparin 40 mg SC q24h -SHAWNEE justin and JGs Code Status -Level I, FULL RESUSCITATION STATUS Level of Care Telemetry Resuscitation Status FULL RESUSCITATION VTE Prophylaxis VTE Risk Assessment Done? Y/N: Yes Risk Level: Moderate Given or contraindicated: Enoxaparin (Lovenox)SQ, T.E.D. Stockings, SCD's
[2017-09-24] MEDS ORDERED: MoRPHine SULFATE 4 MG/ML 1 ML CARP\\VIAL ONE (17:56)
[2017-09-24] MEDS ORDERED: IV FLUIDS COMPLETED PRN (19:45)
[2017-09-24 20:00] VITALS: BP 149/97; PULSE 83; TEMP 37; O2SAT 98; Ht 160 cm; Wt 77.2 kg
[2017-09-24] MEDS ORDERED: ENOXAPARIN 40 MG/0.4 ML SYR SC SCH (21:00)
[2017-09-24] MEDS ORDERED: LORAZEPAM 1 MG TAB PO SCH (21:00)
--- NOTE | 2017-09-24 22:10 | EMERGENCY ROOM VISIT NOTE ---
History Report prepared by Robertibreji: Vicky Wynn Under the Supervision of: Dr. Yonathan Muller M.D. First contact with patient: 14:09 Chief Complaint: CHEST PAIN Stated Complaint: CHEST PAIN Nursing Triage Summary: pt has had endoscopy done on Wednesday for chronic n/v since procedure pt has "not felt well" pt c/o short of breath not related to exertion continued nausea chest pressure pt given 4 baby asa and 1 nitro spray prehospital with minimal relief pt reports bp has been elevated pt went to urgent care and referred to ER History of Present Illness The patient is a 47 year old female who presents to the Emergency Room with complaints of intermittent chest pain for the past 2 months. She was brought to the ED via EMS. She describes her discomfort as feeling like "pressure", rates it as an 8/10 in severity and is located in the middle of her chest. The pain occasionally radiates into her left arm. She is also occasionally diaphoretic during the episodes. Palpation does not reproduce her pain. 4 Aspirin and 1 Nitro spray in the field provided minimal relief. She reports her blood pressure has been giving her problems for months. She complains of intermittent shortness of breath that is worse with exertion like climbing the stairs. She has also been nauseous and has experienced a headache. She denies any recent prolonged car trips or travel. She denies being bedridden. She denies any history of heart disease or chronic hypertension. She does admit her father experienced an MT at the age of 39. The patient denies any recent fevers, cough , melena or hematochezia. She underwent an endoscopy 2 days [employer], for chronic nausea and vomiting, and states since the procedure her blood pressure has been elevated. Source of History: patient Onset: 2 days [employer] Position: chest Symptom Intensity: 8/10 Quality: pressure Timing: intermittent Modifying Factors (Relieving): other (Aspirin, Nitro) Associated Symptoms: + headache, + diaphoresis, + SOB, + nausea, No fevers, No cough, No melena, No hematochezia Review of Systems See HPI for pertinent positives & negatives. A total of 10 systems reviewed and were otherwise negative. Past Medical & Surgical Medical Problems: (1) Chest pain (2) Dyslipidemia (3) Dyspnea on exertion (4) Hypothyroidism (5) Multiple lung nodules (6) Panic disorder Surgical Problems: (1) History of cholecystectomy (2) History of hysterectomy (3) History of tubal ligation Social History Problems: (1) Hypothyroid Family History Diabetes mellitus FH: cancer FH: heart disease Hypertension Social History Smoking Status: Unknown if Ever Smoked Alcohol Use: none Drug Use: none Marital Status: Housing Status: lives with family Occupation Status: employed Current/Historical Medications Scheduled Aspirin (Aspirin 81), 81 MG PO DAILY Cholecalciferol (Vitamin D), 2,000 INTUNIT PO DAILY Levothyroxine Sodium (Levothyroxine Sodium), 75 MCG PO QAM Lorazepam (Ativan), 1 MG PO HS Pantoprazole (Pantoprazole Sodium), 40 MG PO DAILY Allergies Coded Allergies: Citalopram (Verified Allergy, Severe, THROAT SWELLING, 09/24/17) Codeine (Verified Allergy, Mild, GENERALIZED ITCHING, 09/24/17) Ketorolac Tromethamine (Verified Adverse Reaction, Unknown, LOOPY, ) Physical Exam Vital Signs Date Time Temp Pulse Resp B/P (MAP) Pulse Ox O2 Delivery O2 Flow Rate FiO2 09/24/17 16:44 95 20 175/105 99 Room Air 09/24/17 15:51 98 20 158/86 97 Room Air 09/24/17 14:40 117 20 163/104 97 09/24/17 14:39 110 09/24/17 14:06 99 Room Air 09/24/17 14:01 37.1 107 20 182/102 99 Room Air 09/24/17 14:01 99 Room Air Physical Exam Constitutional: Vital signs reviewed. Eyes: Pupils are equal round reactive to light. Conjunctiva are noninjected. ENT: Pharynx is clear without erythema or exudate. Mucous membranes are moist. Neck supple without meningeal signs. Respiratory: Clear to auscultation bilaterally. Breath sounds are equal bilaterally. Cardiovascular: Tachycardic heart rate at 104, regular rhythm. No rubs or gallops. GI: Soft, nondistended and nontender. Bowel sounds are present. Musculoskeletal: No peripheral edema. No lower extremity tenderness. Integumentary: No cyanosis. Neurological: The patient is awake and alert. No focal deficits. Psychiatric: Anxious and tearful. Medical Decision & Procedures ER Provider Diagnostic Interpretation: Radiology results as stated below per my review and the radiologist's interpretation: CHEST ONE VIEW PORTABLE CLINICAL HISTORY: Pneumonia. Cough. COMPARISON STUDY: 09/12/2017 FINDINGS: The cardiac and mediastinal contours remain stable. There is aortic tortuosity. There is no failure. There is no focal pulmonary consolidation. There are no pleural effusions. IMPRESSION: No active disease in the chest. Electronically signed by: Tarik Chew M.D. 09/24/2017 2:34 PM Laboratory Results 09/24/17 15:05 Red Blood Count 4.34, Mean Corpuscular Volume 89.2, Mean Corpuscular Hemoglobin 31.3, Mean Corpuscular Hemoglobin Concent 35.1, Mean Platelet Volume 9.4, Neutrophils (%) (Auto) 75.7, Lymphocytes (%) (Auto) 18.0, Monocytes (%) (Auto) 5.4, Eosinophils (%) (Auto) 0.6, Basophils (%) (Auto) 0.1, Neutrophils # (Auto) 6.39, Lymphocytes # (Auto) 1.52, Monocytes # (Auto) 0.46, Eosinophils # (Auto) 0.05, Basophils # (Auto) 0.01 09/24/17 15:05 Test 09/24/17 15:05 09/24/17 15:13 09/24/17 16:06 White Blood Count 8.45 K/uL (4.8-10.8) Red Blood Count 4.34 M/uL (4.2-5.4) Hemoglobin 13.6 g/dL (12.0-16.0) Hematocrit 38.7 % (37-47) Mean Corpuscular Volume 89.2 fL (80-100) Mean Corpuscular Hemoglobin 31.3 pg (25-34) Mean Corpuscular Hemoglobin Concent 35.1 g/dl (32-36) Platelet Count 215 K/uL (130-400) Mean Platelet Volume 9.4 fL (7.4-10.4) Neutrophils (%) (Auto) 75.7 % Lymphocytes (%) (Auto) 18.0 % Monocytes (%) (Auto) 5.4 % Eosinophils (%) (Auto) 0.6 % Basophils (%) (Auto) 0.1 % Neutrophils # (Auto) 6.39 K/uL (1.4-6.5) Lymphocytes # (Auto) 1.52 K/uL (1.2-3.4) Monocytes # (Auto) 0.46 K/uL (0.11-0.59) Eosinophils # (Auto) 0.05 K/uL (0-0.5) Basophils # (Auto) 0.01 K/uL (0-0.2) RDW Standard Deviation 43.8 fL (36.4-46.3) RDW Coefficient of Variation 13.3 % (11.5-14.5) Immature Granulocyte % (Auto) 0.2 % Immature Granulocyte # (Auto) 0.02 K/uL (0.00-0.02) Anion Gap 10.0 mmol/L (3-11) Est Creatinine Clear Calc Drug Dose 88.5 ml/min Estimated GFR () 106.8 Estimated GFR (Non- 92.1 BUN/Creatinine Ratio 17.9 (10-20) Calcium Level 9.0 mg/dl (8.5-10.1) Chemistry Specimen Hemolysis Bedside D-Dimer 314 ng/mlFEU (0-450) Bedside Troponin I < 0.030 ng/ml (0-0.045) Prothrombin Time 10.6 SECONDS (9.0-12.0) Prothromb Time International Ratio 1.0 (0.9-1.1) Activated Partial Thromboplast Time 24.0 SECONDS (21.0-31.0) Partial Thromboplastin Ratio 0.9 D-Dimer 240 ug/L FEU (0-500) Laboratory results as reviewed by me. Medications Administered Medications (Trade) Dose Ordered Sig/Pati Route Start Time Stop Time Status Last Admin Dose Admin Nitroglycerin (Nitrostat Tab) 0.4 mg Q5M STAT SL 09/24/17 14:21 09/24/17 14:23 DC 09/24/17 14:42 0.4 MG Fentanyl Citrate (Fentanyl Inj) 50 mcg NOW STAT IV 09/24/17 14:59 09/24/17 15:00 DC 09/24/17 15:20 50 MCG Ondansetron HCl (Zofran Inj) 4 mg NOW STAT IV 09/24/17 14:59 09/24/17 15:00 DC 09/24/17 15:19 4 MG ECG Indication: chest pain Rate (beats per minute): 104 Rhythm: sinus tachycardia Findings: Q waves (in lead 3), other (No ST elevations) Change: no significant change (No change from 09/12/17) ED Course 1415: The patient was evaluated in room C12. A complete history and physical exam was performed. 1421: Nitrostat Tab 0.4 mg SL. 1428: I reevaluated the patient. She received 1 Nitro with no change in her symptoms. She is still tachycardic, hypertensive and anxious. 1459: Zofran 4 mg IV, Fentanyl 50 mcg IV. 1535: I reevaluated the patient. Her chest pain is now completely resolved. She is still anxious and her heart rate is 101. I recommended she remain in the hospital for further evaluation and management and she verbalized complete understanding and agreement. 1546: I discussed the patients case with Dr. Moya, [facility] Hospitalist. The patient will be further evaluated. Medical Decision This is a 47-year-old female who presents with chest pain. Differential diagnosis includes unstable angina, MT, GERD, anxiety, pulmonary embolism. I did perform a limited focused review of portions of the patient's old chart on the electronic medical record. The patient had an EGD 2 days [employer] which showed a hiatal hernia, normal duodenum and esophagus. She was seen here on Sep 12 for chest pain radiating to the left arm and shortness of breath. She was diagnosed with likely GERD. I did evaluate the patient as noted above. The patient has been having intermittent chest pain for the past several months. She also has dyspnea with it which is worse with exertion such as climbing the stairs. She was evaluated here recently and diagnosed with likely GERD. She had an EGD, however, which did not show any significant abnormality other than a small hiatus hernia. She had worsening chest pain today which she describes as a pressure in the middle of her chest associated with some shortness breath and sweating. I did treat the patient with sublingual nitroglycerin. She did receive aspirin in the ambulance. The patient was placed on a continuous monitoring specialist. I did order and personally review the patient's 12-lead EKG and chest x-ray as described above. I did order and review the patient's blood work as noted in the electronic medical record. Her troponin and d-dimer are both negative. On reassessment the patient is still having chest pain so I gave her IV fentanyl with Zofran. On reassessment the patient states that her chest pain is resolved. She is still tachycardic and hypertensive but is also still anxious. She is not short of breath currently. I did recommend hospitalization for further evaluation and repeat cardiac enzymes. I did discuss case with the hospitalist and caseworker protective services. Medication Reconcilliation Current Medication List: was personally reviewed by me Blood Pressure Screening Patient's blood pressure: Elevated blood pressure Blood pressure disposition: Referred to PCP Consults Time Called: 1542 Consulting Physician: Dr. Moya, [facility] Hospitalist Returned Call: [phone] I discussed the patients case with Dr. Moya [facility] Hospitalist. The patient will be further evaluated. Impression Primary Impression: Precordial chest pain Additional Impressions: Anxiety Elevated blood pressure reading Scribe Attestation The scribe's documentation has been prepared under my direct and personally reviewed by me in its entirety. I confirm that the note above accurately reflects all work, treatment, procedures, and medical decision making performed by me. Departure Information Dispostion Being Evaluated By Hospitalist Referrals Paxton Byrd M.D. (PCP) Patient Instructions My [facility] Problem Qualifiers
[2017-09-24 23:58] LABS: CKMB/CK RATIO 1.2 (0-3.0)
[2017-09-25 00:03] VITALS: BP 105/68; PULSE 79; TEMP 36.7; O2SAT 96
[2017-09-25 04:39] VITALS: BP 121/77; PULSE 78; TEMP 36.9; O2SAT 96
[2017-09-25] MEDS ORDERED: LEVOTHYROXINE 75 MCG TAB PO SCH (06:00)
[2017-09-25 06:39] LABS: HEMATOCRIT 41.8 % (37-47); MEAN CELL VOLUME 90.1 fL (80-100); MEAN CORPUSCULAR HEMOGLOBIN 30.4 pg (25-34); MEAN CORPUSCULAR HGB CONC 33.7 g/dl (32-36); MEAN PLATELET VOLUME 9.4 fL (7.4-10.4); PLATELET COUNT 207 K/uL (130-400); RED BLOOD COUNT 4.64 M/uL (4.2-5.4); WHITE BLOOD COUNT 5.48 K/uL (4.8-10.8)
[2017-09-25 07:07] LABS: BLOOD UREA NITROGEN 13 mg/dl (7-18); BUN/CREATININE RATIO 19.1 (10-20); CALCIUM 9.2 mg/dl (8.5-10.1); CARBON DIOXIDE 26 mmol/L (21-32); CHLORIDE 108 mmol/L (98-107); CHOLESTEROL 207 mg/dl (0-200); CREATININE 0.66 mg/dl (0.60-1.20); GLUCOSE 109 mg/dl (70-99); POTASSIUM 3.8 mmol/L (3.5-5.1); SODIUM 140 mmol/L (136-145); TRIGLYCERIDES 97 mg/dl (0-150); VERY LOW DENSITY LIPOPROT CALC 19 mg/dl
[2017-09-25 07:11] LABS: CHOLESTEROL/HDL RATIO 4.7; CKMB/CK RATIO 1.1 (0-3.0); HDL CHOLESTEROL 44 mg/dl; LDL CHOLESTEROL CALCULATED 144 mg/dl
[2017-09-25 07:35] LABS: ESTIMATED AVERAGE GLUCOSE 108 mg/dl; HA1C FLAG Normal (Normal)
[2017-09-25 08:14] VITALS: BP 113/75; PULSE 80; TEMP 36.6; O2SAT 96
[2017-09-25] MEDS ORDERED: PANTOprazole SOD 40 MG TAB PO SCH (09:00)
[2017-09-25] MEDS ORDERED: ASPIRIN 81 MG ECTAB PO SCH (09:00)
[2017-09-25] MEDS ORDERED: CHOLECALCIFEROL 1000 INTER.UNIT TAB PO SCH (09:00)
[2017-09-25] MEDS ORDERED: LISINOPRIL 5 MG TAB PO SCH (09:00)
[2017-09-25] MEDS ORDERED: PERFLUTREN LIPID MICROSPHERE (DEFINITY) IV ONE (11:08)
[2017-09-25 12:19] VITALS: BP 145/86; PULSE 87; TEMP 36.6; O2SAT 97
--- NOTE | 2017-09-25 15:10 | ECHOCARDIOGRAM REPORT ---
*NOTICE TO RECEIVING LIBERTARIAN AGENCY This information is strictly Confidential and protected under [place] law. [place] law prohibits you from making any further disclosure of this information unless further disclosure is expressly permitted by the written consent of the person to whom it pertains or is authorized by law. A general authorization for the release of medical or other information is not sufficient for this purpose. Hospital accepts no responsibility if the information is made available to any other person, INCLUDING THE PATIENT. Interpretation Summary * Name: KINGSLEY CLINTON Study Date: 09/25/2017 10:43 AM BP: 113/75 mmHg * Patient Location: C.2E\S\E205\S\1 HR: 80 * : 1970 (M/d/yyyy) Gender: Female Height: 62 in * Age: 47 yrs Ethnicity: CA Weight: 170 lb * Ordering Physician: Isela Schwartz * Referring Physician: Self, Referred * Performed By: Angela Orona RDCS * * Reason For Study: Chest Pain * BSA: 1.8 m2 * -- Conclusions -- * 1. Normal LV size and wall thickness. * 2. Normal LV systolic function. LVEF 65-70%. No regional wall motion abnormalities. * 3. Normal RV size and function. * 4. No significant valvular pathology. * 5. Normal estimated CVP. * 6. Trace pericardial effusion. * 7. Compared with prior study on 01/26/2014: No significant changes. Procedure Details * A complete two-dimensional transthoracic echocardiogram was performed (2D, M-mode, Doppler and color flow Doppler). * The study was technically difficult. * The study was technically difficult, but visualization was adequate with the administration of Definity ultrasound contrast. * A contrast injection of Definity was performed to improve assessment of LV function. * Contrast was injected into an intravenous site in the left arm. * One vial of Definity ultrasound contrast was diluted in normal saline to a total volume of 10 ml. A total of '2' ml of solution was administered during imaging. * Lot # [id number] of Definity utilized for procedure. * Expiration date 1DEC18. * The attending nurse who injected the contrast agent was Ji Recio RN. Left Ventricle * The left ventricle is grossly normal size. * There is normal left ventricular wall thickness. * Ejection Fraction = 65-70%. * No regional wall motion abnormalities noted. Atria * The left atrial size is normal. * Right atrial size is normal. * No ASD detected; PFO is not assessed. Mitral Valve * The mitral valve is grossly normal. * There is no mitral valve stenosis. * Significant mitral regurgitation is absent. Tricuspid Valve * The tricuspid valve is not well visualized, but is grossly normal. * Tricuspid stenosis is absent. * Significant tricuspid regurgitation is absent. Aortic Valve * The aortic valve opens well. * The aortic valve is trileaflet. * No hemodynamically significant valvular aortic stenosis. * There is no significant aortic regurgitation. Pulmonic Valve * The pulmonary valve is inadequately visualized, but the Doppler data is adequate for interpretation. * Pulmonic stenosis is absent. * There is no significant pulmonary regurgitation. Great Vessels * The aortic root and proximal ascending aorta are normal sized. Pericardium/Pleural * Trivial pericardial effusion. Great Vessels * Normal inferior vena cava size and collapsability with sniff indicates a normal right atrial pressure of 3 mmHg MMode 2D Measurements and Calculations IVSd 0.91 cm IVSs 1.0 cm LVIDd 3.9 cm LVIDs 2.6 cm LVPWd 1.0 cm LVPWs 1.3 cm IVS/LVPW 0.91 FS 33.0 % EDV(Teich) 65.9 ml ESV(Teich) 24.9 ml EF(Teich) 62.2 % EDV(cubed) 59.3 ml ESV(cubed) 17.8 ml EF(cubed) 69.9 % % IVS thick 10.0 % % LVPW thick 27.9 % LV mass(C)d 115.3 grams LV mass(C)dI 64.6 grams/m\S\2 LV mass(C)s 83.9 grams LV mass(C)sI 47.0 grams/m\S\2 SV(Teich) 41.0 ml SI(Teich) 23.0 ml/m\S\2 SV(cubed) 41.5 ml SI(cubed) 23.2 ml/m\S\2 Ao root diam 2.6 cm Ao root area 5.4 cm\S\2 ACS 1.8 cm LA dimension 2.9 cm LA/Ao 1.1 LVAd ap4 25.7 cm\S\2 LVLd ap4 8.0 cm EDV(MOD-sp4) 69.8 ml EDV(sp4-el) 70.1 ml LVAs ap4 11.7 cm\S\2 LVLs ap4 5.9 cm ESV(MOD-sp4) 20.2 ml ESV(sp4-el) 19.9 ml EF(MOD-sp4) 71.0 % EF(sp4-el) 71.6 % LVAd ap2 23.6 cm\S\2 LVLd ap2 7.6 cm EDV(MOD-sp2) 63.7 ml EDV(sp2-el) 62.4 ml LVAs ap2 11.1 cm\S\2 LVLs ap2 5.7 cm ESV(MOD-sp2) 18.9 ml ESV(sp2-el) 18.1 ml EF(MOD-sp2) 70.4 % EF(sp2-el) 71.0 % LVLd %diff -4.75 % EDV(MOD-bp) 67.0 ml LVLs %diff -2.08 % ESV(MOD-bp) 19.7 ml EF(MOD-bp) 70.5 % SV(MOD-sp4) 49.5 ml SI(MOD-sp4) 27.8 ml/m\S\2 SV(MOD-sp2) 44.8 ml SI(MOD-sp2) 25.1 ml/m\S\2 SV(MOD-bp) 47.3 ml SI(MOD-bp) 26.5 ml/m\S\2 SV(sp4-el) 50.2 ml SI(sp4-el) 28.2 ml/m\S\2 SV(sp2-el) 44.3 ml SI(sp2-el) 24.8 ml/m\S\2 Doppler Measurements and Calculations MV E max saeed 88.3 cm/sec MV A max saeed 76.3 cm/sec MV E/A 1.2 MV dec time 0.19 sec Ao V2 max 119.1 cm/sec Ao max PG 5.7 mmHg Ao max PG (full) 1.3 mmHg LV V1 max PG 4.4 mmHg LV V1 max 104.5 cm/sec PA V2 max 98.4 cm/sec PA max PG 3.9 mmHg
[2017-09-25] MEDS ORDERED: ZNT150 PO (15:14)
[2017-09-25] MEDS ORDERED: LSN5 PO (15:14)
--- NOTE | 2017-09-25 15:25 | Discharge Instructions ---
Discharge Instructions Date of Service Sep 25, 2017. Admission Reason for Admission: Chest Pain, Dyspnea On Exertion Discharge Discharge Diagnosis / Problem: Chest pain-noncardiac, Dyspnea on exertion, Hypertension Discharge Goals Goal(s): Improve disease control, Diagnostic testing, Therapeutic intervention Activity Recommendations Activity Limitations: resume your previous activity Exercise/Sports Limitations: none Shower/Bathe: no limitations Driving or Machine Use: no limitations . Instructions / Follow-Up Instructions / Follow-Up You were admitted due to high blood pressure in the setting of your longstanding chest pain and shortness of breath. You had blood work, EKGs, and an ultrasound of your heart. All of the testing showed that you did not have a heart attack. It would probably still be a good idea to get an outpatient cardiac stress test ordered by your family doctor to further straify your risk for heart disease. Because of the direct tenderness over your right breastbone, this could be inflammation of the cartilage there called Costochondritis. This can be treated with Aleve (naproxen) twice daily and could take a couple of weeks to resolve. Your symptoms could also be related to the GI tract, perhaps from esophageal spasm. You should continue the Protonix you recently started in the mornings, and add back the ranitidine 150mg in the evenings. You were started on a medication for your blood pressure called lisinopril which helped tremendously. Please continue taking this once daily. Your cholesterol was checked and is at acceptable levels-you do not need to be treated with a cholesterol-lowering medication. Please follow up with your family doctor within 1 week to continue to evaluate you for causes of your symptoms, and to follow up on your high blood pressure. Current Hospital Diet Patient's current hospital diet: AHA Diet (Heart Healthy) Discharge Diet Recommended Diet: AHA Diet (Heart Healthy) Procedures Procedures Performed: Echocardiogram Chest xray Pending Studies Studies pending at discharge: no Laboratory Results Hemoglobin A1c Test 09/24/17 15:05 Range/Units Estimated Average Glucose 108 mg/dl Hemoglobin A1c 5.4 4.5-5.6 % Lipid Panel Test 09/25/17 06:17 Range/Units Triglycerides Level 97 0-150 mg/dl Cholesterol Level 207 H 0-200 mg/dl HDL Cholesterol 44 mg/dl Cholesterol/HDL Ratio 4.7 LDL Cholesterol, Calculated 144 mg/dl Medical Emergencies . Who to Call and When: Medical Emergencies: If at any time you feel your situation is an emergency, please call 911 immediately. . Non-Emergent Contact Non-Emergency issues call your: Primary Care Provider Call Non-Emergent contact if: your pain is not controlled, your pain is worsening, your pain is unusual for you, your pain is concerning you, you have any medication questions . . "Provider Documentation" section prepared by Iesla Schwartz. . VTE Core Measure Inpt VTE Proph given/why not?: Enoxaparin (Lovenox)ERIC, T.E.Wolf. Sudha, SCD's
[2017-09-25] MEDS ORDERED: NAPR500T3 PO (15:47)
[2017-09-25] MEDS ORDERED: NAPROXEN 250 MG TAB PO STA (15:48)
--- NOTE | 2017-09-25 16:25 | Discharge Summary ---
Discharge Summary Date of Service Sep 25, 2017. Discharge Summary Admission Date: Sep 24, 2017 at 17:04 Discharge Date: Sep 25, 2017 Discharge Disposition: Home Principal Diagnosis: Chest pain, costochondritis Problems/Secondary Diagnoses: HTN GERD Anxiety disorder with panic attacks Hypothyroidism Pulmonary nodules Mediastinal lymphadenopathy Papilloma of the lung Trace pericardial effusion Procedures: Chest xray Echocardiogram Consultations: None Medication Reconciliation New Medications: Naproxen (Naproxen) 500 Mg Tab 1 TAB PO BID for 14 Days, #28 TAB 0 Refills Ranitidine HCl (Ranitidine HCl) 150 Mg Tab 150 MG PO HS for 30 Days, #30 TAB Lisinopril (Lisinopril) 5 Mg Tab 5 MG PO QAM for 30 Days, #30 TAB Continued Medications: Aspirin (Aspirin 81) 81 Mg Tab 81 MG PO DAILY Cholecalciferol (Vitamin D) 1,000 Unit Tab 2000 INTUNIT PO DAILY Levothyroxine Sodium (Levothyroxine Sodium) 75 Mcg Tab 75 MCG PO QAM, TAB Lorazepam (Ativan) 1 Mg Tab 1 MG PO HS Pantoprazole (Pantoprazole Sodium) 40 Mg Tab 40 MG PO DAILY Discharge Exam Pt continued to have her usual recurrences of the same chest pain with SOB she has been having for over a year. It starts in the left mid back and radiates around to the epigastric region and up into the right side of her sternum. It is pressure and squeezing-like in nature, comes on at rest and sometimes after eating, not usually with exertion except when she uses a mop. The initial pain wrapping around her left thorax lasts for a few minutes, but the right costochondral pain lasts for hours at a time afterwards. She reports associated SOB and at times diaphoresis, but is also going through menopause. She has had a pulmonary workup to include PFTs, bronchoscopy and sampling of mediastinal LNs and pulm nodules, cultures, all of which were benign/no infection source. She reports having an EGD just 3 days ago that showed her hiatal hernia and was switched to Protonix which is helping her previous reflux and vomiting, but has not made a difference in her chest pain/SOB. She occasionally gets pain in the neck that radiates down her left arm to her hands as well. She interestingly reports that someone treated her with steroids for brief course about a year ago and that was the only time she has ever had relief from this pain. She has been seeing a Chiropractor routinely which has not made a difference at all. Review of Systems: Constitutional: + sweats (with menopause), No fever, No chills Eyes: No problem reported ENT: No problem reported Respiratory: + shortness of breath Cardiovascular: + chest pain Abdomen: No problem reported Musculoskeletal: + problem reported (as per HPI) Genitourinary - Female: No problem reported Neurologic: No problem reported Psychiatric: + anxiety Endocrine: No problem reported Hematologic / Lymphatic: No problem reported Integumentary: No problem reported Physical Exam: General Appearance: WD/WN, no apparent distress Eyes: normal inspection, sclerae normal ENT: hearing grossly normal Neck: supple, no adenopathy, no carotid bruits, trachea midline Respiratory/Chest: lungs clear, normal breath sounds, no respiratory distress, no accessory muscle use, + pertinent finding (+TTP exquisitely over the right lower costochondral junction) Cardiovascular: regular rate, rhythm, no edema, no gallop, no JVD, no murmur , normal peripheral pulses Abdomen / GI: normal bowel sounds, non tender, soft, no organomegaly, no pulsatile mass Extremities: normal inspection, no calf tenderness, normal capillary refill , no pedal edema Neurologic/Psychiatric: alert, normal mood/affect, oriented x 3 Skin: normal color, warm/dry, no rash Hospital Course This pt is a 47 y/o female with a history of anxiety with panic attacks, hypothyroidism, hiatal hernia/GERD, and pulmonary nodules who presented to the ED on 09/24 with her usual chest pain and dyspnea on exertion. She came in because on top of this chronic CP/SOB, her BP was in the 200s systolic at home which is very unusual for her. Pt tachycardic with HR up to 117, hypertensive with BP up to 182/102 on admission. Pt given nitro and 4 baby aspirin by EMS, no relief of pain. Received another dose of nitro in ED, no relief. Received fentanyl 50 mcg which did temporarily resolve pain. CXR no acute disease. EKG sinus tach no ischemic changes. Troponin negative serially. Labs unremarkable otherwise including a D-dimer which was negative. She had no significant events on telemetry and ruled out for ACS. She had a resting ECHO (as a Stress ECHO could not get done on the weekend and it was not felt that she needed this as an inpatient due to the atypical nature of her chest pain). ECHO showed a trace pericardial effusion which was seen on a previous CT Chest and is likely of no consequence. Fasting lipid panel performed and according to ACC/AHA lipid guidelines, she had a 2.8% risk of ASCVD in the next 10 years and did not need a statin. Her chest pain is felt to represent a musculoskeletal issue given the direct tenderness on palpation. She was advised to start naproxen 500mg po bid x 2 weeks while taking her PPI and add back on her H2 dulce maria in the evening for 1- 2 weeks. Given her cervical and possibly thoracic radicular symptoms, she may have benfit from getting a T and C-spine MRI as an outpatient and following up with Pain Management. For her new HTN, this may be worsened by stress. She was started on lisinopril 5mg po daily and had a nice response to this. Her BPs were well controlled at the time of discharge and she should remain on this as an outpatient. She was recommended to follow up with her PCP within 1-2 weeks. Total Time Spent: Greater than 30 minutes This includes examination of the patient, discharge planning, medication reconciliation, and communication with other providers. Discharge Instructions Please refer to the electronic Patient Visit Report (Discharge Instructions) for additional information. Follow-Up PCP within 1-2 weeks Additional Copies To Paxton Byrd M.D.
[2017-09-25 16:29] VITALS: BP 145/86; PULSE 87; TEMP 36.6; O2SAT 97
== END 2017-09-25 16:59 | disposition home or self-care (01) ==
LOC: EDBD 13:44 → C.EDC 13:45 → C.2E 17:04 → ENRESERV 17:20
PROVIDERS: ADMIT Hospitalist; ATTEND Family Medicine
DX: R07.9 Chest pain, unspecified (principal); M94.0 Chondrocostal junction syndrome [Tietze]; I10 Essential (primary) hypertension; K21.9 Gastro-esophageal reflux disease without esophagitis; F41.9 Anxiety disorder, unspecified; E03.9 Hypothyroidism, unspecified; R91.1 Solitary pulmonary nodule; R59.1 Generalized enlarged lymph nodes; D14.30 Benign neoplasm of unspecified bronchus and lung; I31.3 Pericardial effusion (noninflammatory); Z79.899 Other long term (current) drug therapy; Z79.82 Long term (current) use of aspirin; Z90.49 Acquired absence of other specified parts of digestive tract; Z90.710 Acquired absence of both cervix and uterus; Z98.51 Tubal ligation status; Z83.3 Family history of diabetes mellitus; Z80.9 Family history of malignant neoplasm, unspecified; Z82.49 Family history of ischemic heart disease and other diseases of the circulatory system

== ENCOUNTER → 2017-10-18 | Outpatient (CLI) | payer OTHER ==
[~2017-10-18] MED LIST changes: +ASPI-435 PO; +CHOL100010 PO; -CHOL2000 PO; +LSN5 PO; +NAPR500T3 PO; -PANT40TA PO; +PANT40TA2 PO; +ZNT150 PO
[2017-10-18 18:00] LABS: URINE APPEARANCE CLEAR (CLEAR); URINE BILIRUBIN NEG (NEG); URINE COLOR YELLOW; URINE NITRITE NEG (NEG); URINE PH 7.5 (4.5-7.5); URINE SPECIFIC GRAVITY 1.011 (1.000-1.030); UROBILINOGEN NEG (NEG); ZZUR CULT IF INDIC CLEAN CATCH NO
[2017-10-18 18:02] LABS: MANUAL MICROSCOPIC REQUIRED? NO; REVIEW REQ? NO
[2017-10-18 18:29] LABS: BLOOD UREA NITROGEN 10 mg/dl (7-18); BUN/CREATININE RATIO 14.4 (10-20); CALCIUM 9.5 mg/dl (8.5-10.1); CARBON DIOXIDE 29 mmol/L (21-32); CHLORIDE 104 mmol/L (98-107); CREATININE 0.72 mg/dl (0.60-1.20); GLUCOSE 93 mg/dl (70-99); POTASSIUM 3.9 mmol/L (3.5-5.1); SODIUM 136 mmol/L (136-145)
[2017-10-19 07:42] LABS: ESTIMATED AVERAGE GLUCOSE 103 mg/dl; HA1C FLAG Normal (Normal)
== END | disposition home or self-care (01) ==
LOC: C.LABBFT 11:37
PROVIDERS: ATTEND Internal Medicine
DX: R31.29 Other microscopic hematuria (principal); R73.9 Hyperglycemia, unspecified; E03.9 Hypothyroidism, unspecified; E55.9 Vitamin D deficiency, unspecified; I10 Essential (primary) hypertension

== ENCOUNTER → 2018-02-23 | Outpatient (CLI) | payer OTHER ==
[~2018-02-23] MED LIST changes: +NAPR-1231 PO; -NAPR500T3 PO
== END | disposition home or self-care (01) ==
LOC: C.LABBFT 15:23
PROVIDERS: ATTEND Internal Medicine
DX: E03.9 Hypothyroidism, unspecified (principal); E55.9 Vitamin D deficiency, unspecified

== ENCOUNTER → 2018-03-02 | Outpatient (CLI) | payer OTHER ==
--- NOTE | 2018-03-02 15:17 | DIAGNOSTIC IMAGING REPORT ---
SOFT TISS HEAD/NECK-THYROID CLINICAL HISTORY: 47 years-old Female with R94.6 Abnormal thyroid [id number]. COMPARISON: CT chest 06/03/2017 TECHNIQUE: Multiple real time sonographic images of the thyroid were obtained accessing odonnell scale appearance and color doppler flow. FINDINGS: MEASUREMENTS: Right lobe: 4.8 x 1.7 x 1.9 cm Left lobe: 4.0 x 1.8 x 1.3 cm Isthmus: 0.3 cm PARENCHYMA: The thyroid parenchymal echotexture is heterogeneous throughout. Color flow is within normal limits. NODULES: No discrete nodules are appreciated. IMPRESSION: Heterogeneous thyroid parenchyma without discrete nodule identified. The above report was generated using voice recognition software. It may contain grammatical, syntax or spelling errors. Electronically signed by: Demetrius Lynn M.D. 03/02/2018 3:16 PM Dictated Date/Time: 03/02/2018 3:15 PM
== END | disposition home or self-care (01) ==
LOC: C.ULTR 14:36
PROVIDERS: ATTEND Internal Medicine
DX: R94.6 Abnormal results of thyroid function studies (principal)